=== PATIENT | male | born 1980 | race Caucasian/White ===

== ENCOUNTER 2018-03-26 15:32 | Emergency (ER) | payer OTHER ==
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
[2018-03-26] MEDS ORDERED: LORAZEPAM INJ 2 MG/1 ML VIAL IM ONE (17:46)
[2018-03-26] MEDS ORDERED: HALOPERIDOL LACTATE INJ 5 MG/1 ML VIAL IM ONE (17:46)
[2018-03-26] MEDS: DIPHENHYDRAMINE HCL 50 MG/ML VIAL IM ONE ×2 (18:00→18:15)
[2018-03-26] MEDS ORDERED: BENZTROPINE MESYLATE INJ 2 MG/2 ML AMPULE IM ONE (18:15)
--- NOTE | 2018-03-26 18:35 | PSYCHOLOGICAL NOTE ---
Psych Note - Psych Note Psych Note: Contacted by ED to conduct MH consult after hours. However, Patient was restrained and not being cooperative. He reportedly was refusing all interventions to include medications, lab and urine. Patient is currently under IVC and it was reported he now had the right to refuse to labs despite the reported medical emergency he presented in (i.e. under the influence of alcohol , possibly drugs, diophoretic, aggressive, threatening, high blood pressure, etc.). Due to be being in 4-point restraints and being uncooperative, a consult could not be completed. Charge Nurse advised the Patient should be monitored and discharge status deferred to the attending ED Physician.
[2018-03-26 21:43] LABS: ABSOLUTE EOSINOPHILS # (AUTO) 0.1 10^3/uL (0.0-0.6); ABSOLUTE MONOCYTES (AUTO) 0.6 10^3/uL (0.1-1.4); ABSOLUTE NEUT (AUTO) 5.3 10^3/uL (1.7-8.2); BASOPHILS % (AUTO) 0.4 % (0-2); EOSINOPHILS % (AUTO) 2.1 % (0-6); HEMATOCRIT 41.3 % (37.9-51.0); HEMOGLOBIN 14.6 g/dL (13.5-17.0); LYMPHOCYTES % (AUTO) 14.2 % (13-45); MEAN CORPUSCULAR HEMOGLOBIN 29.9 pg (27.0-33.4); MEAN CORPUSCULAR HGB CONC 35.3 g/dL (32.0-36.0); MEAN CORPUSCULAR VOLUME 85 fl (80-97); MONOCYTES % (AUTO) 8.6 % (3-13); PLATELET COUNT 202 10^3/uL (150-450); RED BLOOD COUNT 4.88 10^6/uL (4.35-5.55); RED CELL DISTRIBUTION WIDTH 13.8 % (11.5-14.0); SEGMENTED NEUTROPHILS % (AUTO) 74.7 % (42-78); TOTAL CELLS COUNTED % (AUTO) 100 %
[2018-03-26 21:50] LABS: APPEARANCE,URINE CLEAR; BILIRUBIN,URINE NEGATIVE (NEGATIVE); COLOR,URINE YELLOW; GLUCOSE, URINE >=500 mg/dL (NEGATIVE); KETONES,URINE TRACE mg/dL (NEGATIVE); LEUKOCYTE ESTERASE,URINE NEGATIVE (NEGATIVE); NITRITE,URINE NEGATIVE (NEGATIVE); PROTEIN,URINE NEGATIVE (NEGATIVE); URINE SPECIFIC GRAVITY 1.015
[2018-03-26 21:59] LABS: ACETAMINOPHEN < 10 ug/mL (10-30); ALANINE AMINOTRANSFERASE 48 U/L (21-72); ALBUMIN 4.3 g/dL (3.5-5.0); ALCOHOL < 10 mg/dL (NONE DETECTED); ALKALINE PHOSPHATASE 133 U/L (38-126); ANION GAP 11 (5-19); ASPARTATE AMINO TRANSFERASE 32 U/L (17-59); BILIRUBIN,DIRECT 0.3 mg/dL (0.0-0.4); BILIRUBIN,TOTAL 0.8 mg/dL (0.2-1.3); BLOOD UREA NITROGEN 7 mg/dL (7-20); CALCIUM 9.4 mg/dL (8.4-10.2); CARBON DIOXIDE 30 mmol/L (22-30); CHLORIDE 103 mmol/L (98-107); GLUCOSE 167 mg/dL (75-110); POTASSIUM 3.8 mmol/L (3.6-5.0); SALICYLATE < 1.0 mg/dL (2.0-20.0); TOTAL PROTEIN 7.2 g/dL (6.3-8.2)
--- NOTE | 2018-03-26 22:04 | EKG REPORT ---
SEVERITY:- ABNORMAL ECG - SINUS TACHYCARDIA LEFT ANTERIOR FASCICULAR BLOCK : Confirmed by: Yasmin Cristina 26-Mar-2018 22:02:54
[2018-03-26 22:08] LABS: URINE AMPHETAMINES SCREEN NEGATIVE; URINE BARBITURATES SCREEN NEGATIVE; URINE BENZODIAZEPINES SCREEN NEGATIVE; URINE COCAINE SCREEN NEGATIVE; URINE MARIJUANA (THC) SCREEN NEGATIVE; URINE METHADONE SCREEN NEGATIVE; URINE PHENCYCLIDINE SCREEN NEGATIVE
[2018-03-27] MEDS ORDERED: LORAZEPAM 1 MG TABLET PO ONE (03:18)
--- NOTE | 2018-03-27 11:16 | ER Document Report ---
Doctor's Note Notes: 03/27/18 11:14 Rounds: Chart reviewed and attempted to interview patient, but he sleeping soundly. Patient is being evaluated for agitation and bizarre behavior. Initially had to be restrained. Now, he is out of restraints and much calmer. Lab studies were all essentially normal. Vital signs were all essentially normal. Patient appears to be medically stable for transfer or discharge. Zina Walker MD
[2018-03-27] MEDS: VENLAFAXINE HCL 75 MG CAP.SR.24H PO SCH (14:32)
[2018-03-27] MEDS: BUSPIRONE HCL 10 MG TABLET PO SCH ×2 (14:32→17:41)
[2018-03-28] MEDS: VENLAFAXINE HCL 75 MG CAP.SR.24H PO SCH (08:27)
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
[2018-03-28] MEDS ORDERED: VENLAFAXINE HCL 75 MG TABLET PO ONE (09:22)
[2018-03-28] MEDS: BUSPIRONE HCL 10 MG TABLET PO SCH (09:40)
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
[2018-03-28 14:07] VITALS: BP 149/96
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
== END 2018-03-28 14:09 | disposition home or self-care (01) ==
LOC: ER 15:32
DX: F32.9 Major depressive disorder, single episode, unspecified (principal); F10.10 Alcohol abuse, uncomplicated; T14.91XA Suicide attempt, initial encounter; S41.119A Laceration without foreign body of unspecified upper arm, initial encounter; X83.8XXA Intentional self-harm by other specified means, initial encounter; Z78.1 Physical restraint status
CPT/HCPCS: 93005; 99285; 96372; 36415; 80307 ×4; 85025; 80053; 81001; 93010; J0515; J1630; J2060; J1200

== ENCOUNTER 2018-07-19 16:45 | Emergency (ER) | payer BC ==
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
[2018-07-19 17:58] LABS: ABSOLUTE BASOPHILS # (AUTO) 0.1 10^3/uL (0.0-0.2); ABSOLUTE EOSINOPHILS # (AUTO) 0.4 10^3/uL (0.0-0.6); ABSOLUTE LYMPHOCYTES (AUTO) 1.1 10^3/uL (0.5-4.7); ABSOLUTE MONOCYTES (AUTO) 0.5 10^3/uL (0.1-1.4); ABSOLUTE NEUT (AUTO) 4.2 10^3/uL (1.7-8.2); BASOPHILS % (AUTO) 0.9 % (0-2); EOSINOPHILS % (AUTO) 5.9 % (0-6); HEMATOCRIT 32.1 % (37.9-51.0); HEMOGLOBIN 11.3 g/dL (13.5-17.0); LYMPHOCYTES % (AUTO) 18.1 % (13-45); MEAN CORPUSCULAR HEMOGLOBIN 30.1 pg (27.0-33.4); MEAN CORPUSCULAR HGB CONC 35.2 g/dL (32.0-36.0); MEAN CORPUSCULAR VOLUME 86 fl (80-97); MONOCYTES % (AUTO) 7.4 % (3-13); PLATELET COUNT 331 10^3/uL (150-450); RED BLOOD COUNT 3.75 10^6/uL (4.35-5.55); RED CELL DISTRIBUTION WIDTH 14.1 % (11.5-14.0); SEGMENTED NEUTROPHILS % (AUTO) 67.7 % (42-78); TOTAL CELLS COUNTED % (AUTO) 100 %; WHITE BLOOD COUNT 6.2 10^3/uL (4.0-10.5)
--- NOTE | 2018-07-19 18:52 | ER Document Report ---
ED General - General Chief Complaint: Post Surgical Bleeding Stated Complaint: ARM BLEEDING FROM SURGICAL SITE Time Seen by Provider: 07/19/18 17:10 Notes: Patient is a 37-year-old male who had a bone graft and gume placed into the left shoulder and humerus on July 09 at [facility] who presents with concerns of a small amount of bleeding coming from the superior aspect of the incisional line. Patient states that he was sitting at his computer, began noticed blood leaking from the top of his dressing prompting him come to the emergency department for further assessment. He states the bleeding has stopped after he dabbed the area with a towel. No ongoing bleeding at this time. Denies any trauma or pain to the area. Nothing seemed to improve or worsen the bleeding. He has not contacted his orthopedic surgeon regarding today's concerns. He has not had any increased pain to the area. No fever. - Related Data Allergies/Adverse Reactions: diphenhydramine [From Benadryl] Allergy (Verified 07/19/18 17:09) Past Medical History - General Information source: Patient - Social History Smoking Status: Never Smoker Chew tobacco use (# tins/day): No Frequency of alcohol use: None Drug Abuse: None Lives with: Spouse/Significant other Family History: Reviewed & Not Pertinent, Other - unknown Patient has suicidal ideation: No Patient has homicidal ideation: No Renal/ Medical History: Denies: Hx Peritoneal Dialysis Past Surgical History: Reports: Hx Orthopedic Surgery - left humerus Review of Systems - Review of Systems Notes: Constitutional: Negative for fever. HENT: Negative for sore throat. Eyes: Negative for visual changes. Cardiovascular: Negative for chest pain. Respiratory: Negative for shortness of breath. Gastrointestinal: Negative for abdominal pain, vomiting or diarrhea. Genitourinary: Negative for dysuria. Musculoskeletal: Positive for bleeding from surgical site Skin: Negative for rash. Neurological: Negative for headaches, weakness or numbness. 10 point ROS negative except as marked above and in HPI. Physical Exam - Vital signs Vitals: Temp Pulse Resp BP Pulse Ox 98.5 F 118 H 18 122/77 98 07/19/18 16:49 07/19/18 16:49 07/19/18 16:49 07/19/18 16:49 07/19/18 16:49 Interpretation: Tachycardic - Resolved at the time of my assessment with a heart rate of 72 Notes: PHYSICAL EXAMINATION: GENERAL: Well-appearing, well-nourished and in no acute distress. HEAD: Atraumatic, normocephalic. EYES: Pupils equal round and reactive to light, extraocular movements intact, sclera anicteric, conjunctiva are normal. ENT: nares patent, oropharynx clear without exudates. Moist mucous membranes. NECK: Normal range of motion, supple without lymphadenopathy LUNGS: Breath sounds clear to auscultation bilaterally and equal. No wheezes rales or rhonchi. HEART: Regular rate and rhythm without murmurs ABDOMEN: Soft, nontender, normoactive bowel sounds. No guarding, no rebound. No masses appreciated. EXTREMITIES: Normal range of motion, no pitting or edema. No cyanosis. NEUROLOGICAL: No focal neurological deficits. Moves all extremities spontaneously and on command. PSYCH: Normal mood, normal affect. SKIN: Warm, Dry, normal turgor, there is an incision along the upper mid shoulder and then a long incision starting at the upper lateral humerus extending down to the level of the elbow. There is no active bleeding from any part of the incision. No swelling, hematoma or apparent seroma. It appears that there was a scant amount of bleeding from the most superior aspect of the long incision. Course - Re-evaluation Re-evalutation: 07/19/18 18:51 Patient presents with a concern of a mild amount of hemorrhage from the superior aspect of his left upper extremity surgical wound from the 14th of this month. The dressing was removed at the bedside, wound was clean, no active bleeding. Appears very well without evidence of infection or erythema. No obvious seroma or hematoma. No obvious abscess pocket. The wound was redressed and the patient will be discharged home. No indication for further observation or imaging. Labs unremarkable with only mild anemia likely postoperative in origin. The patient did characterize the amount of bleeding to me as being quite minimal and was never a large hemorrhage. He has the towel with him that he used to hold pressure on the area has almost no blood on it. At this time will discharge with return precautions and follow-up recommendations. Verbal discharge instructions given a the bedside and opportunity for questions given. Medication warnings reviewed. Patient is in agreement with this plan and has verbalized understanding of return precautions and the need for primary care follow-up in the next 24-72 hours. - Vital Signs Vital signs: Temp Pulse Resp BP Pulse Ox 98.4 F 95 17 125/80 98 07/19/18 19:42 07/19/18 19:42 07/19/18 19:42 07/19/18 19:42 07/19/18 19:42 - Laboratory Result Diagrams: 07/19/18 17:38 Laboratory results interpreted by me: 07/19/18 07/19/18 17:38 19:00 RBC 3.75 L Hgb 11.3 L Hct 32.1 L RDW 14.1 H POC Glucose 125 H Discharge - Discharge Clinical Impression: Bleeding from wound Postoperative complication Qualifiers: Surgical complication system/body Area: circulatory system Surgical complication type: hemorrhage Procedure type: non-circulatory Qualified Code(s) : I97.620 - Postprocedural hemorrhage of a circulatory system organ or structure following other procedure Condition: Good Disposition: HOME, SELF-CARE Additional Instructions: Please return if you have recurrence of bleeding from your wound that is not stopped by gentle pressure, increasing swelling to the area, fever, increasing pain, or any other symptoms that are worrisome to you. Please follow-up with your orthopedic surgeon regarding today's [facility] department visit at your earliest ability.
[2018-07-19 19:43] VITALS: BP 125/80
== END 2018-07-19 19:43 | disposition home or self-care (01) ==
LOC: ER 16:45
DX: I97.620 Postprocedural hemorrhage of a circulatory system organ or structure following other procedure (principal); Y83.2 Surgical operation with anastomosis, bypass or graft as the cause of abnormal reaction of the patient, or of later complication, without mention of misadventure at the time of the procedure; D64.9 Anemia, unspecified; I10 Essential (primary) hypertension; E11.9 Type 2 diabetes mellitus without complications; Z79.4 Long term (current) use of insulin; Z79.84 Long term (current) use of oral hypoglycemic drugs; Z88.8 Allergy status to other drugs, medicaments and biological substances
CPT/HCPCS: 36415; 82962; 85025; 99283

== ENCOUNTER 2018-07-20 22:15 | Emergency (ER) | payer BC ==
[2018-07-20] MEDS ORDERED: MORPHINE SULFATE 10 MG/ML INJ IM ONE (23:43)
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
[2018-07-21 03:08] VITALS: BP 147/85
== END 2018-07-21 03:09 | disposition home or self-care (01) ==
LOC: ER 22:15
DX: G89.18 Other acute postprocedural pain (principal); M79.602 Pain in left arm; X50.0XXA Overexertion from strenuous movement or load, initial encounter; Z79.899 Other long term (current) drug therapy; Z98.890 Other specified postprocedural states
CPT/HCPCS: 99283; 73060; 73030; J2270

== ENCOUNTER → 2020-02-19 | Outpatient (CLI) | payer BC ==
--- NOTE | 2020-02-19 13:19 | RADIOLOGY REPORT (SQ) ---
EXAM DESCRIPTION: U/S SCROTUM W/O DOPPLER IMAGES COMPLETED DATE/TIME: 02/19/2020 1:04 pm REASON FOR STUDY: LEFT TESTICULAR PAIN (N50.812) N50.812 LEFT TESTICULAR PAIN COMPARISON: None. TECHNIQUE: Static and realtime day scale imaging of the scrotum and testes. Selected color Doppler and spectral images recorded to document blood flow. LIMITATIONS: None. FINDINGS: RIGHT: TESTICLE: Normal size measuring 5.0 x 3.1 x 2.7 cm. Normal echotexture. Normal blood flow. No mass. EPIDIDYMIS: Unremarkable echotexture. Epididymal head measures up to 1.3 cm. . HYDROCELE OR VARICOCELE: No. HERNIA OR EXTRA-TESTICULAR MASS: No. OTHER: No other significant finding. LEFT: TESTICLE: Normal size measuring 4.3 x 3.4 x 2.5 cm. Normal echotexture. Normal blood flow. No mass. EPIDIDYMIS: Heterogeneous echotexture. Epididymal head measures up to 1.9 cm. HYDROCELE OR VARICOCELE: No. HERNIA OR EXTRA-TESTICULAR MASS: No. OTHER: Scrotal skin thickening. IMPRESSION: 1. Heterogeneous left epididymis suggestive of epididymitis. 2. Diffuse scrotal skin thickening may represent cellulitis. Recommend correlation with physical ex am. 3. Unremarkable testicular parenchyma bilaterally. TECHNICAL DOCUMENTATION: JOB ID: [id number] [employer]- All Rights Reserved Reading location - IP/workstation name: [email or web address]
== END ==
LOC: RAD 12:09
PROVIDERS: ATTEND Physician Assistant
DX: N50.812 Left testicular pain (principal)
CPT/HCPCS: 76870